=== PATIENT | male | born 1945 | race Caucasian/White ===

== ENCOUNTER → 2016-10-17 | Outpatient (CLI) | payer BC ==
--- NOTE | 2016-10-17 16:49 | RAD ---
Right lower extremity arterial ultrasound, 10/17/2016: History: Surgical planning for bunionectomy Duplex evaluation of the major arteries in the right lower extremity was performed including grayscale, color-flow and spectral Doppler analysis. The right common femoral artery demonstrates a triphasic Doppler waveform. There appear to be mild scattered atherosclerotic plaques in the right lower extremity. The femoral and popliteal Doppler waveforms are biphasic. No significant focal velocity elevation is seen through these regions to suggest high-grade stenosis. Patent anterior tibial, posterior tibial and peroneal arteries are present in the right lower leg demonstrating good amplitude biphasic Doppler waveforms. The right dorsalis pedis artery is patent with a biphasic Doppler waveform. IMPRESSION: No duplex evidence of high-grade focal arterial stenosis in the right lower extremity.
== END | disposition home or self-care (01) ==
LOC: US 13:05
PROVIDERS: ATTEND Podiatrist
DX: Z01.818 Encounter for other preprocedural examination (principal); E11.9 Type 2 diabetes mellitus without complications
CPT/HCPCS: 93926

== ENCOUNTER → 2016-11-02 | Outpatient (CLI) | payer BC ==
--- NOTE | 2016-11-02 13:55 | KCIC ---
CHEST PA LATERAL History: Preoperative evaluation, 71-year-old male. Comparison: None. Findings: The cardiomediastinal silhouette is normal. Pulmonary vasculature is normal. The lungs are clear. No pleural effusion or pneumothorax is seen. There is no acute bone abnormality. Degenerative endplate spurring in the thoracic spine. IMPRESSION: No acute cardiopulmonary process. Electronically signed by: Bonilla Meraz MD (11/02/2016 1:51 PM) [id number]
== END | disposition home or self-care (01) ==
LOC: KCIC 13:26
PROVIDERS: ATTEND Family Medicine
DX: Z01.818 Encounter for other preprocedural examination (principal)
CPT/HCPCS: 71020

== ENCOUNTER → 2018-09-12 | Outpatient (CLI) | payer BC ==
--- NOTE | 2018-09-12 13:00 | KCIC ---
CT HEAD WO CONTRAST History: Worsening memory loss, hypersomnia Comparison: None. Technique: Noncontrast CT imaging was performed of the head. Exposure: One or more of the following individualized dose reduction techniques were utilized for this examination: 1. Automated exposure control 2. Adjustment of the mA and/or kV according to patient size 3. Use of iterative reconstruction technique. Findings: No acute extra-axial or parenchymal hemorrhage is identified. There is no significant intra-axial mass effect, midline shift, or extra-axial fluid collection. The ceron-white differentiation of the major vascular territories is preserved. The ventricles, sulci, and cisterns are within normal limits in size and configuration. The mastoid air cells and the visualized paranasal sinuses are aerated. No acute calvarial abnormality is identified. Impression: 1. No acute intracranial abnormality is identified. Electronically signed by: Rl Trujillo MD (09/12/2018 12:57 PM) [id number]
== END | disposition home or self-care (01) ==
LOC: KCIC CT 09:51
PROVIDERS: ATTEND Psychiatry & Neurology Neurology with Special Qualifications in Child Neurology
DX: R41.3 Other amnesia (principal); G47.10 Hypersomnia, unspecified; F32.9 Major depressive disorder, single episode, unspecified
CPT/HCPCS: 70450

== ENCOUNTER → 2018-10-01 | Outpatient (CLI) | payer BC ==
--- NOTE | 2018-10-02 16:43 | SLEEP ---
DATE OF STUDY: 10/01/2018 HOME POLYSOMNOGRAM REPORT OBJECTIVE: The patient is a 73-year-old male with memory loss and excessive somnolence, [place] sleep score 9, height 72 inches, weight 235 pounds, body mass index 31.9. The respiratory monitoring shows apnea-hypopnea index of 24.6 events per hour of sleep, mostly obstructive hypopneas with the minimum oxygen saturation of 85%. A number of mixed apneas were also seen. Mean heart rate of 68 beats per minute, 94 beats per minute is the maximum heart rate. IMPRESSION: Abnormal home polysomnogram showing significant obstructive sleep apnea. RECOMMENDATIONS: I will arrange for an in-lab CPAP titration study. Thank you for letting us help with the patient's care. ABDOUL CARTER MD DR: DIVINA/jean JOB#: [id number] / [id number] BLANKA Diaz MD
== END | disposition home or self-care (01) ==
LOC: RT 09:44
PROVIDERS: ATTEND Psychiatry & Neurology Neurology with Special Qualifications in Child Neurology
DX: G47.33 Obstructive sleep apnea (adult) (pediatric) (principal)
CPT/HCPCS: G0399

== ENCOUNTER → 2018-11-12 | Outpatient (CLI) | payer BC ==
[~2018-11-12] MED LIST: ZOLPIDEM 5 MG TABLET. PO ONE
--- NOTE | 2018-11-13 15:24 | SLEEP ---
DATE OF STUDY: 11/12/2018 STUDY PERFORMED: Polysomnogram. OBJECTIVE: The patient is a 73-year-old male who underwent a home polysomnogram on 10/01/2018 showing an apnea-hypopnea index of 24.6 events per hour of sleep. He returns to the laboratory for a CPAP titration study. INTERPRETATION: Sleep architecture is characterized by a sleep efficiency of 79% across 8.4 hours of recording time. There was a decreased amount of slow-wave sleep. Sleep onset latency is 54 minutes. This is a CPAP titration study. Respiratory monitoring does demonstrate a total of 91 events for an overall apnea-hypopnea index of 13.7 events per hour of sleep, with a minimum oxygen saturation of 86%. Most of the apneas were obstructive or mixed in nature. CPAP treatment is started and at a level of 20 cm, the apnea-hypopnea index is 5.8 events per hour of sleep. BiPAP was not attempted. No significant cardiac arrhythmias or periodic limb movements of sleep are observed. IMPRESSION: Abnormal polysomnogram demonstrating obstructive sleep apnea-hypopnea, finally treated on 20 cm of CPAP using a [employer]ironics dreamweaver full face mask, small size. RECOMMENDATIONS: 1. I will attempt to arrange this setting for the patient. 2. He will also avoid sedatives and alcohol and pursue weight loss. Thank you for letting us help with the patient's care. ABDOUL CARTER MD DR: DIVINA/jean JOB#: [id number] / [id number] BLANKA Diaz MD
== END | disposition home or self-care (01) ==
LOC: RT 18:59
PROVIDERS: ATTEND Psychiatry & Neurology Neurology with Special Qualifications in Child Neurology
DX: G47.33 Obstructive sleep apnea (adult) (pediatric) (principal)
CPT/HCPCS: 95811